=== PATIENT | male | born 1975 | race Caucasian/White ===

== ENCOUNTER 2020-04-08 00:24 | Emergency (ER) | payer BC, SELFPAY ==
[2020-04-08] VITALS (7 sets, daily range): BP systolic 116–161; BP diastolic 78–102; PULSE 70–88; RESP 16–20; TEMP 36; O2SAT 94–99
--- NOTE | ~2020-04-08 | XR_ITS ---
EXAMINATION: XR chest 1V portable 04/08/2020 00:59 INDICATION: Chest pain PROCEDURE: AP portable chest COMPARISON: Comparison to multiple prior studies sequentially, with oldest reviewed study dated 05/13. FINDINGS: The lungs are clear. The cardiomediastinal silhouette is within normal limits. There are no pleural effusions. There is no pneumothorax suspected. IMPRESSION: 1: NO ACUTE CARDIOPULMONARY DISEASE. Reviewed, dictated and finalized at location A.
--- NOTE | ~2020-04-08 | CT_ITS ---
EXAMINATION: CTA chest PE protocol DATE: 04/08/2020 08:57 CDT INDICATION: Chest pain TECHNIQUE: Computed tomographic angiography (CTA) of the chest was performed with 100 mL Omnipaque-35 0 intravenous contrast. The dose-length product was 885.91 mGy-cm. Maximum intensity projection 3D-re constructions of the aorta and other arteries were constructed by the technologist on a separate work station. COMPARISON: Chest dated 04/08/2020. FINDINGS: Study is technically adequate without evidence for pulmonary embolism. No significant pleur al or pericardial effusion. No thoracic lymphadenopathy. There is a large bleb in the right middle lo be. No endobronchial lesions. No focal pulmonary nodules or masses. IMPRESSION: 1. No evidence for pulmonary embolism. No acute cardiopulmonary disease. Reviewed, dictated and finalized at location A.
--- NOTE | 2020-04-08 00:43 | ECG_ITS ---
Measurements Intervals [place] Rate: 74 P: 46 FL: 169 QRS: 90 QRSD: 104 T: 40 QT: 379 QTc: 421 Interpretive Statements SINUS RHYTHM INCOMPLETE RIGHT BUNDLE BRANCH BLOCK BASELINE WANDER- V4-V6 BORDERLINE ECG Electronically Signed On 04-08-2020 7:48:00 CDT by Lauro Mckeon D.O.
--- NOTE | 2020-04-08 00:44 | ED.GENADULT ---
HPI - General Adult General Chief complaint: Unspecified Stated complaint: left arm pain; feels terrible Time Seen by Provider: 04/08/20 00:33 History of Present Illness HPI narrative: Patient presents emergency department from home for left arm pain. Patient states symptoms have been throughout the day today. Pain in the left shoulder down the left arm described as aching in nature states that the pain comes approximately every 10 minutes last for approximately 10 minutes and resolves. Nothing makes the pain better or worse. Denies any fevers or chills chest pain shortness of breath. Does note some episodes of diaphoresis and dizziness with the episodes. Patient does state he had a previous cardiac catheterization 2012 that was normal at that time Related Data Allergies Allergy/AdvReac Type Severity Reaction Status Date / Time Penicillins Allergy Mild Verified 11/02/14 08:51 Contrast Media Allergy Mild Uncoded 11/02/14 08:51 Review of Systems Review of Systems: Narrative: Gen.: Denies fevers or chills ENT: Denies congestion Respiratory: Denies shortness of breath or cough CV: Denies chest pain or palpitations GI: Denies abdominal pain nausea, emesis or diarrhea Musculoskeletal: Reports left arm pain Neuro: Denies numbness, tingling, weakness or focal weakness reports remittent dizziness Skin: Denies rash Except as documented, all other systems reviewed and negative [facility] Past Medical History Medical History (Updated 04/08/20 @ 04:49 by Russell Ledesma DO) Hypercholesterolemia Social History Social History (Updated 04/08/20 @ 00:45 by Russell Ledesma DO) Smoking status: Never smoker Gender identity (if verbalized by the patient): Male Exam Narrative: Exam Narrative: APPEARANCE: No acute distress, nontoxic, resting in bed EYES: EOMI HEENT: Normocephalic, atraumatic, OMM Neck: Supple, no midline tenderness palpation, full range of motion of the neck with pain with full rotation left, tender palpation of the left lateral neck in the region of the trapezius muscle with muscle spasm palpated point tenderness present RESPIRATORY: No respiratory distress Clear to auscultation bilaterally with no rhonchi wheezing or rales. CARDIOVASCULAR: Regular rate and rhythm without murmurs rubs or gallops. ABDOMINAL: Soft, nontender, nondistended, no rebound or guarding MUSCULOSKELETAl: Moves all extremities. No clubbing, cyanosis or edema. No tenderness to palpation of the left shoulder elbow or wrist with full range of motion without pain, radial pulse 2+, neurovascular intact NEURO: Awake and alert. Following commands, speech normal, no focal deficits SKIN:: Warm, dry. No rashes lesions or abrasions PSYCHIATRIC: Normal affect/mood, Course Course Emergency Course: Patient states pain resolved following Toradol Discussed with Dr Hall presentation work-up. Cardiac history. This time feels that with 2 negative troponins and negative CTA patient may be discharged to follow-up as an outpatient Discussed with patient results of workup and diagnosis. Discussed need for follow-up with primary care, proper use of medication, and reasons to return to the emergency department. Patient understands and agrees to current treatment plan Vital Signs Vital signs: Vital Signs Temperature 96.8 F L 04/08/20 00:29 Pulse Rate 84 04/08/20 00:29 Respiratory Rate 20 04/08/20 00:29 Blood Pressure 158/102 H 04/08/20 00:29 Pulse Oximetry 98 04/08/20 00:29 Temperature 96.8 F L 04/08/20 00:29 Pulse Rate 73 04/08/20 04:32 Respiratory Rate 16 04/08/20 04:32 Blood Pressure 122/78 04/08/20 04:32 Pulse Oximetry 99 04/08/20 04:32 Medical Decision Making MDM Narrative Medical decision making narrative: Patient's EKGs and labs are without significant high risk changes. Cardiac risk factors reviewed. Patient is felt likely low risk for ACS and reasonable for further risk stratification testing as an outpatient. P
[2020-04-08] MEDS: ASPIRIN 81 MG CHEWABLE TABLET 324 MG PO (00:52)
[2020-04-08 00:54] LABS: Basophils Absolute Auto 0.1 K/mm3 (0.0-0.1); Basophils Percent Auto 0.8 % (0.2-1.2); Eosinophils Absolute Auto 0.2 K/mm3 (0-0.3); Eosinophils Percent Auto 1.8 % (0-4.4); Hematocrit 47.9 % (42.0-52.0); Hemoglobin 16.5 g/dL (14.0-18.0); Immature Granulocyte Absolute 0.03 K/mm3 (0.00-0.031); Immature Granulocyte Percent A 0.3 % (0-0.5); Lymphocytes Absolute Auto 3.17 K/mm3 (0.9-3.2); Lymphocytes Percent Auto 31.9 % (18.3-44.2); Mean Corpuscular HGB Conc 34.4 g/dl (32-36); Mean Corpuscular Hemoglobin 29.9 pg (26-34); Mean Corpuscular Volume 86.9 fl (80-100); Monocytes Percent Auto 9.6 % (2.6-8.5); Neutrophils Absolute Auto 5.5 K/mm3 (1.3-6.7); Neutrophils Percent Auto 55.6 % (45.5-73.1); Platelet Count Result 229 k/mm3 (150-375); Red Blood Count 5.51 M/mm3 (4.6-6.20); Red Cell Distribution Width 12.2 % (11.5-14.5); White Blood Count 9.9 K/mm3 (4.5-10.0)
[2020-04-08 01:06] LABS: Alanine Aminotransferase 27 U/L (4-50); Albumin Level 4.4 g/dL (3.5-5.1); Alkaline Phosphatase 92 U/L (38-126); Anion Gap 10 mmol/L (8-16); Aspartate Amino Transferase 23 U/L (17-59); Bilirubin,Total 0.3 mg/dL (0.2-1.3); Blood Urea Nitrogen 15 mg/dL (9-20); Calcium 9.2 mg/dL (8.4-10.2); Carbon Dioxide 29 mmol/L (22-30); Chloride 103 mmol/L (98-107); Estimated CRCL calculation 118 ml/min; Estimated Glomerular Filt Rate > 60; Glucose 184 mg/dL (75-110); Potassium 4.1 mmol/L (3.4-5.0); Sodium 142 mmol/L (137-145)
[2020-04-08 01:10] LABS: Partial Thromboplastin Time 28.4 SECONDS (22.3-36.8); Prothrombin Time 12.4 Seconds (11.1-14.7)
[2020-04-08 01:17] LABS: Troponin I < 0.012 ng/mL (0.000-0.034)
[2020-04-08] MEDS: MORPHINE SULFATE (*CRX) 2 MG/ML INJ IV PUSH (01:39)
--- NOTE | 2020-04-08 01:52 | PC.NURSE ---
PT states he had an allergy to the contrast he got during an MRI. Denies hx of issues with CT Contrast.
[2020-04-08 04:02] LABS: Troponin I < 0.012 ng/mL (0.000-0.034)
[2020-04-08] MEDS: KETOROLAC 30 MG/ML VIAL (*BKC) IV PUSH (04:06)
--- NOTE | 2020-04-08 04:39 | ECG_ITS ---
Measurements Intervals [place] Rate: 72 P: 31 [place]: 177 QRS: 87 QRSD: 100 T: 38 QT: 386 QTc: 422 Interpretive Statements SINUS RHYTHM INCOMPLETE RIGHT BUNDLE BRANCH BLOCK BORDERLINE R WAVE PROGRESSION, ANTERIOR LEADS BORDERLINE ECG Electronically Signed On 04-08-2020 7:51:15 CDT by Lauro Mckeon D.O.
== END 2020-04-08 05:09 | disposition home or self-care (01) ==
PROVIDERS: Emergency Provider Emergency Medicine; PCP Physician Assistant
DX: M62.830 Muscle spasm of back (principal); E78.00 Pure hypercholesterolemia, unspecified; I45.10 Unspecified right bundle-branch block; R94.31 Abnormal electrocardiogram [ECG] [EKG]
CPT/HCPCS: 36415; 71045; 71275; 80053; 84484; 85025; 85380; 85610; 85730; 93005; 96374; 96375; 99284; A9270; J1885; J2270; Q9967

== ENCOUNTER 2020-05-13 15:11 | Emergency (ER) | payer BC, SELFPAY ==
[2020-05-13 15:24] VITALS: BP 125/85; PULSE 90; RESP 20; TEMP 37.6; O2SAT 98
--- NOTE | 2020-05-13 15:37 | ED.URI ---
HPI - URI/Sore Throat General Chief Complaint: Upper Respiratory Infection Stated Complaint: upper respiratory infection Source: patient Mode of arrival: ambulatory Limitations: no limitations History of Present Illness HPI Narrative: Marino Powell is a 44 yo male with a PMH of high cholesterol who comes to [facility] with a low-grade fever of 99 7, symptoms of sinusitis since Thursday. States that he cannot clear any mucus in his sinuses and that he feels poorly and is wanting a prescription for doxycycline. He claims that when he has been treated in the past that that is what the drug he has been given however he has not been seen in the [facility] since the record transition. Patient denies smoking or drinking, taking both Claritin and Zyrtec the same time, so has a nasal steroid spray that he is using Related Data Home Medications Medication Instructions Recorded Confirmed Vitamin D3 05/13/20 05/13/20 cetirizine [Zyrtec] 10 mg PO DAILY 05/13/20 05/13/20 loratadine [Claritin] 10 mg PO DAILY 05/13/20 05/13/20 simvastatin mg 05/13/20 Allergies Allergy/AdvReac Type Severity Reaction Status Date / Time Penicillins Allergy Mild Unknown Verified 05/13/20 15:28 Contrast Media Allergy Mild Unknown Uncoded 05/13/20 15:28 Review of Systems Review of Systems: Narrative: CONSTITUTIONAL low-grade fever, chills, sweats. EYES: Denies visual changes, redness, discharge. ENT: Denies rhinorrhea, congestion, sore throat, otalgia. Sinus pressure since Thursday CARDIOVASCULAR: Denies chest pain, palpitations, edema. RESPIRATORY: Denies dyspnea, wheezing, cough GASTROINTESTINAL: Denies abdominal pain, nausea, vomiting, diarrhea. GENITOURINARY: Denies dysuria, hematuria, abnormal discharge SKIN: Denies rash or itching. NEUROLOGIC: Denies numbness, or focal weakness. PSYCHIATRIC: Denies anxiety or depression. [facility] Past Medical History Medical History High cholesterol Hypercholesterolemia Family History Family History Other High cholesterol Hypertension Social History Social History (Updated 05/13/20 @ 15:40 by Brigida Rodriguez CNP) Smoking status: Never smoker Alcohol intake: current Alcohol use details: Rarely drinks Gender identity (if verbalized by the patient): Male Comments At time of signature, I agree with nursing past medical, surgical, social and family history. There is no relevant family history pertinent to the presenting complaint. Exam Narrative: Exam Narrative: GENERAL: This is a well-nourished, well-developed patient, in mild distress. 99.7 temperature HEAD: normocephalic, atraumatic. EYES: Sclera clear/white. Vision is grossly intact. EARS: External ears normal, auditory canals clear and without drainage, TMs normal without perforation. Hearing grossly intact. NOSE: External nose normal without nasal discharge, nares with redness, no rhinorrhea. Complaining of sinus pressure THROAT: Mucous membranes moist, posterior pharynx no exudate or erythema NECK: Neck supple, non-tender CARDIOVASCULAR: Regular rate and rhythm without murmurs, gallops, or rubs. RESPIRATORY: Clear to auscultation. Breath sounds equal bilaterally. No wheezes, rales, or rhonchi. GASTROINTESTINAL: Abdomen soft, SKIN: warm, intact with no suspicious lesions or rash, good texture and turgor. NEURO: awake, alert, and oriented to person, place and time. There were no obvious focal neurologic abnormalities. Steady gait EXTREMITIES: Normal range of motion. BACK: Nontender without deformity Course Course Emergency Course: Patient comes to express care with complaints of sinus pressure Insists on getting an antibiotic states that he will be miserable trying to treat symptomatically , wants doxycycline -given 5 days of doxycycline Follow-up with PCP Vital Signs Vital signs: Vital Signs Temperature
== END 2020-05-13 16:13 | disposition home or self-care (01) ==
PROVIDERS: Emergency Provider Nurse Practitioner; PCP Physician Assistant
DX: J01.00 Acute maxillary sinusitis, unspecified (principal); E78.00 Pure hypercholesterolemia, unspecified
CPT/HCPCS: 99213; G0463

== ENCOUNTER 2022-06-02 09:52 | Emergency (ER) | payer BC, SELFPAY ==
[2022-06-02 10:13] VITALS: BP 141/92; PULSE 80; RESP 18; TEMP 36.9; O2SAT 98
--- NOTE | 2022-06-02 12:06 | ED.SKABFB ---
HPI - Skin/Abscess/Foreign Bdy General Chief complaint: Skin/Abscess/Foreign Body Stated complaint: perianal abcess Time Seen by Provider: 06/02/22 11:45 History of Present Illness HPI narrative: Patient is a 46-year-old male with a history of recurrent perianal abscess here for evaluation of right-sided rectal pain for the past week. Patient states the pain is getting worse over the past week, he notes worsening pain with bowel movements and with sitting. Also notes blood on the toilet tissue when he wipes. Patient tells me that he has seen a general surgeon in the past for drainage but has been able to get into in the office. Denies fevers, chills, nausea, vomiting, changes to bowels. Related Data Home Medications Medication Instructions Recorded Confirmed Vitamin D3 05/13/20 05/13/20 cetirizine 10 mg tablet (Zyrtec) 10 mg PO DAILY 05/13/20 05/13/20 loratadine 10 mg tablet (Claritin) 10 mg PO DAILY 05/13/20 05/13/20 simvastatin 10 mg tablet mg 05/13/20 Allergies Allergy/AdvReac Type Severity Reaction Status Date / Time Penicillins Allergy Mild Unknown Verified 06/02/22 11:31 Contrast Media Allergy Mild Unknown Uncoded 06/02/22 11:31 Review of Systems Review of Systems: Gen: Denies fevers or chills Eyes: Denies eye pain or visual change ENT: Denies congestion Respiratory: Denies shortness of breath or cough CV: Denies chest pain or palpitations GI: Reports pain to rectal area. Denies abdominal pain nausea, emesis or diarrhea : denies burning, urgency, frequency or hematuria Musculoskeletal: Denies back pain or muscle pain Neuro: Denies numbness, tingling, weakness or focal weakness Skin: Denies rash Except as documented, all other systems reviewed and negative [facility] Past Medical History Medical History High cholesterol Hypercholesterolemia Family History Family History Other High cholesterol Hypertension Social History Social History (Updated 05/13/20 @ 15:40 by Brigida Rodriguez, [place]) Smoking status: Never smoker Alcohol intake: current Alcohol use details: Rarely drinks Gender identity (if verbalized by the patient): Male Exam Narrative: APPEARANCE: Well appearing, no pain in distress, well-nourished. Head: Normocephalic and atraumatic. EYES: PERRLA/EOMI, conjunctivae clear NOSE: No nasal drainage EARS: External ear normal in appearance THROAT: Oropharynx is clear. Mucous membranes are moist. NECK: Supple. No adenopathy, no masses. RESPIRATORY: Airway patent, respirations nonlabored. Clear to auscultation bilaterally, no rales, rhonchi, wheezing. CARDIOVASCULAR: Regular rate and rhythm without murmurs, rubs, or gallops. : Patient has a 3 cm x 3 cm area of redness and induration to the right perianal area that is tender to palpation, no obvious fluctuance or drainage noted. ABDOMINAL: Normoactive bowel sounds. Soft, nontender, nondistended. No rebound tenderness or guarding. MUSCULOSKELETAL: Extremities are warm and well-perfused. Moves all extremities well. No edema. NEURO: Normal speech. No focal neurologic deficits. SKIN: Skin is warm and dry. No rashes. PSYCHIATRIC: Normal affect/mood. Course Vital Signs Vital signs: Vital Signs Temperature 98.4 F 06/02/22 10:13 Pulse Rate 80 06/02/22 10:13 Respiratory Rate 18 06/02/22 10:13 Blood Pressure 141/92 H 06/02/22 10:13 Pulse Oximetry 98 06/02/22 10:13 Oxygen Delivery Room Air 06/02/22 10:13 Temperature 98.4 F 06/02/22 10:13 Pulse Rate 80 06/02/22 10:13 Respiratory Rate 18 06/02/22 10:13 Blood Pressure 141/92 H 06/02/22 10:13 Pulse Oximetry 98 06/02/22 10:13 Oxygen Delivery Room Air 06/02/22 10:13 MDM - Skin/Abscess/Foreign Bdy MDM Narrative Medical decision making narrative: 46-year-old male here for evaluation of perianal discomfort for the past several da
--- NOTE | 2022-06-02 12:22 | PC.NURSE ---
when going into pt's room to give pain medication pt expressed concern of the plan of action. This RN explained to pt what we were doing and the reason why. pt states last time he just saw a general surgeon and they were able to gill it and he could go home. pt states he has never had to get blood work or a CT scan and is refusing to get them done. explained to pt the importance of the tests. pt still refusing and states he would just rather go to [place]. Danita ESTRADA made aware of situation and states to have the pt sign out AMA. explained to pt the risks of leaving AMA and the benefits of staying. pt still refusing. pt made aware he can always return if he changes his mind. pt signed AMA paperwork and ambulated out of the ED to the waiting area.
== END 2022-06-02 12:32 | disposition left against medical advice (07) ==
LOC: ANHED 11:50
PROVIDERS: Emergency Provider Emergency Medicine; PCP Physician Assistant
DX: K61.0 Anal abscess (principal); E78.00 Pure hypercholesterolemia, unspecified
CPT/HCPCS: 99281

== ENCOUNTER → 2023-03-27 15:21 | Outpatient (CLI) | payer BC, SELFPAY ==
--- NOTE | ~2023-03-27 | XR_ITS ---
EXAMINATION: XR wrist RT 2V INDICATION: Right wrist pain TECHNIQUE: Two views of the right hand are obtained. COMPARISON: 11/08/2012 FINDINGS: Bone alignment is normal. There is no fracture. There is mild osteoarthritis at the first m etacarpophalangeal joint. The soft tissues are unremarkable. IMPRESSION: 1. No acute osseous abnormality. Reviewed, dictated and finalized at location F.
--- NOTE | ~2023-03-27 | XR_ITS ---
EXAMINATION: XR hand RT 2V INDICATION: Right hand pain TECHNIQUE: Two views of the right hand are obtained. COMPARISON: 11/08/2012 FINDINGS: There is mild osteoarthritis at the first metacarpophalangeal joint. Bone alignment is norm al. There is no fracture. There is mild ventral soft tissue swelling of the wrist. IMPRESSION: 1. No acute osseous abnormality. Reviewed, dictated and finalized at location F.
== END ==
PROVIDERS: PCP Internal Medicine; Visit Provider Nurse Practitioner Family
DX: M79.641 Pain in right hand (principal)
CPT/HCPCS: 73100; 73120

== ENCOUNTER 2024-02-08 21:24 | Emergency (ER) | payer BC, SELFPAY ==
--- NOTE | ~2024-02-08 | XR_ITS ---
EXAMINATION: XR chest 2V DATE: 02/08/2024 21:36 INDICATION: Chest pain TECHNIQUE: PA and lateral views of the chest were obtained. COMPARISON: Chest radiograph dated 04/08/2020 FINDINGS: Small lung volumes. Unchanged mild linear discoid atelectasis/scarring in the lingula and lateral lef t lung base. No new airspace opacities, pulmonary edema, pleural effusion or pneumothorax. The cardio mediastinal silhouette is normal. Cholecystectomy clips in the right upper quadrant. IMPRESSION: 1. Small lung volumes with chronic mild lingular discoid atelectasis/scarring. Reviewed, dictated and finalized at location A.
--- NOTE | 2024-02-08 21:25 | ECG_ITS ---
Test Date: 2024-02-08 21:29:34 Measurements Intervals [place] Rate: 89 P: 35 AL: 175 QRS: 196 QRSD: 102 T: 50 QT: 349 QTc: 427 Interpretive Statements SINUS RHYTHM RIGHT AXIS DEVIATION POSSIBLE LEFT ATRIAL ENLARGEMENT PATTERN CONSISTENT WITH PULMONARY DISEASE INCOMPLETE RIGHT BUNDLE BRANCH BLOCK BASELINE ARTIFACT- I, III, AVR, AVL, AVF BORDERLINE ECG No previous ECG available for comparison Electronically Signed On 02-09-2024 06:20:33 CDT by Lauro Mckeon D.O.
[2024-02-08 21:26] VITALS: BP 140/82; PULSE 88; RESP 15; TEMP 36.6; O2SAT 98
[2024-02-08] MEDS: ASPIRIN 81 MG CHEWABLE TABLET 324 MG PO (22:39)
[2024-02-08 22:43] LABS: Basophils Absolute Auto 0.1 K/mm3 (0.0-0.1); Basophils Percent Auto 0.8 % (0.2-1.2); Eosinophils Absolute Auto 0.1 K/mm3 (0-0.3); Eosinophils Percent Auto 1.1 % (0-4.4); Hematocrit 51.9 % (42.0-52.0); Hemoglobin 18.2 g/dL (14.0-18.0); Immature Granulocyte Absolute 0.03 K/mm3 (0.00-0.031); Immature Granulocyte Percent A 0.3 % (0-0.5); Lymphocytes Absolute Auto 2.24 K/mm3 (0.9-3.2); Lymphocytes Percent Auto 22.8 % (18.3-44.2); Mean Corpuscular HGB Conc 35.1 g/dl (32-36); Mean Corpuscular Hemoglobin 30.3 pg (26-34); Mean Corpuscular Volume 86.4 fl (80-100); Mean Platelet Volume 9.9 fl (7.4-10.4); Monocytes Absolute Auto 0.8 K/mm3 (0.1-0.6); Neutrophils Absolute Auto 6.6 K/mm3 (1.3-6.7); Platelet Count Result 171 k/mm3 (150-375); Red Blood Count 6.01 M/mm3 (4.6-6.20); Red Cell Distribution Width 12.5 % (11.5-14.5); White Blood Count 9.8 K/mm3 (4.5-10.0)
[2024-02-08 22:58] LABS: Prothrombin Time 14.2 Seconds (11.1-14.7)
[2024-02-08 22:59] LABS: Partial Thromboplastin Time 28.5 Seconds (22.3-36.8)
[2024-02-08 23:00] VITALS: BP 121/74; PULSE 87; RESP 22; O2SAT 100
[2024-02-08 23:11] LABS: Alanine Aminotransferase 22 U/L (6-50); Albumin Level 4.1 g/dL (3.5-5.1); Alkaline Phosphatase 68 U/L (38-126); Anion Gap 10 mmol/L (4-12); Aspartate Amino Transferase 21 U/L (17-59); Bilirubin,Total 0.7 mg/dL (0.2-1.3); Blood Urea Nitrogen 13 mg/dL (9-20); Calcium 8.7 mg/dL (8.4-10.2); Carbon Dioxide 24 mmol/L (22-30); Chloride 101 mmol/L (98-107); Estimated CRCL calculation 98 ml/min; Estimated Glomerular Filt Rate > 60; Glucose 141 mg/dL (65-110); Lipase 218 U/L (23-300); Potassium 3.9 mmol/L (3.4-5.0); Sodium 135 mmol/L (137-145)
[2024-02-08 23:23] LABS: Troponin I < 0.012 ng/mL (0.000-0.034)
[2024-02-09 00:13] VITALS: BP 120/89; PULSE 98; RESP 24; O2SAT 100
--- NOTE | 2024-02-09 00:18 | ED.GENADULT ---
HPI - General Adult General Chief complaint: Chest Pain Stated complaint: lightheaded, L arm pain Time Seen by Provider: 02/08/24 23:29 Source: patient Limitations: no limitations History of Present Illness HPI narrative: Patient is a 48-year-old male presents to the emergency department for lightheadedness and a lack of sensation in his left arm that occurred at approximately 8:15 p.m. while the patient was laying in a recliner and not doing anything out of the ordinary. Patient notes the feeling of lack of sensation seemed to start and has left hand and radiated up towards his left armpit region where it stopped and it lasted a couple minutes and then resolved and has not returned. Patient states that he feels well at this time. Patient denies any further lightheadedness. Patient states he has been in his normal state health as of late, denies any recent injuries, recent illness, cough, chest pain, difficulty breathing, fever, weakness. Patient admits to history of some cervical issues in which she sees a chiropractor for it. Related Data Home Medications Medication Instructions Recorded Confirmed cetirizine 10 mg tablet (Zyrtec) 10 mg PO DAILY 05/13/20 11/10/23 loratadine 10 mg tablet (Claritin) 10 mg PO DAILY 05/13/20 11/10/23 cholecalciferol (vitamin D3) 125 250 mcg PO DAILY 01/19/23 11/10/23 mcg (5,000 unit) capsule testosterone cypionate 100 mg/mL 150 mg IM WEEKLY 05/12/23 11/10/23 intramuscular oil magnesium 250 mg tablet 250 mg PO DAILY 11/10/23 11/10/23 prasterone (dhea) 25 mg capsule 15 mg PO DAILY 11/10/23 11/10/23 (DHEA) tadalafil 5 mg tablet 5 mg PO DAILY 11/10/23 11/10/23 vitamin B42-robrkbd B1 1,000 ml IM 11/10/23 11/10/23 mcg-100 mg/mL injection solution Allergies Allergy/AdvReac Type Severity Reaction Status Date / Time Penicillins Allergy Severe Rash Verified 02/08/24 21:31 Review of Systems Review of Systems: A 10 system review of systems was completed on the patient and is negative except for what is stated in the HPI. Nursing and ancillary documentation was reviewed. [facility] Past Medical History Medical History (Updated 02/09/24 @ 00:56 by Adonay Earl DO) Abscess, perianal Aftercare following right hip joint replacement surgery Allergies Anxiety Colon polyps DM w/o complication type II High cholesterol History of arthroplasty of right elbow Hypercholesterolemia Irritable bowel syndrome Irritable bowel syndrome with mixed bowel habits Male hypogonadism Shoulder pain, bilateral Surgical History Surgical History (Updated 11/10/23 @ 10:08 by Olga Ramirez CMA) H/O repair of rotator cuff History of anal fistulotomy History of arthroplasty of right shoulder History of cholecystectomy Hx of tonsillectomy Family History Family History Sibling Cancer Father Depression Anxiety Heart problem Other High cholesterol Hypertension Social History Social History (Updated 11/10/23 @ 10:19 by Olga Ramirez [facility]) Smoking status: Never smoker Alcohol intake: current Alcohol use details: Rarely drinks Substance use: never Substance use type: does not use Do You Feel Safe in your Home?: Yes Lack of Transportation: No Lack of Food: Never True Current Housing: I Have Housing Concerned About Future Housing: No Difficulty Paying Gas/Electric Bills: No Difficulty Paying for Meds: No Currently Unemployed: No Education: Bachelor's Degree Difficulty w/ Childcare or Family Care: No Living arrangements: with family Occupation/Education: occupation Gender identity (if verbalized by the patient): Male Agree to blood products: Yes Comments At time of signature, I have reviewed and agree with nursing past medical, surgical, social and family history unless otherwise noted. Please see the nursing chart for further information. There is no relevant family history pertinent to
[2024-02-09 00:45] LABS: D Dimer 0.34 ug/mL (<0.48)
--- NOTE | 2024-02-09 01:30 | ECG_ITS ---
Test Date: 2024-02-09 01:13:41 Measurements Intervals [place] Rate: 87 P: 43 TN: 170 QRS: 156 QRSD: 106 T: 47 QT: 357 QTc: 430 Interpretive Statements SINUS RHYTHM RIGHT AXIS DEVIATION POSSIBLE LEFT ATRIAL ENLARGEMENT INCOMPLETE RIGHT BUNDLE BRANCH BLOCK BASELINE ARTIFACT- I, III, AVR, AVL, AVF, V2 BORDERLINE ECG Compared to ECG 02/08/2024 21:29:34 NO SIGNIFICANT CHANGE Electronically Signed On 02-09-2024 06:21:38 CDT by Lauro Mckeon D.O.
[2024-02-09 01:40] LABS: Troponin I < 0.012 ng/mL (0.000-0.034)
== END 2024-02-09 02:08 | disposition home or self-care (01) ==
PROVIDERS: Emergency Provider Student in an Organized Health Care Education/Training Program; PCP Internal Medicine
DX: R42 Dizziness and giddiness (principal); G56.92 Unspecified mononeuropathy of left upper limb; E11.41 Type 2 diabetes mellitus with diabetic mononeuropathy; E78.00 Pure hypercholesterolemia, unspecified; K58.2 Mixed irritable bowel syndrome; Z96.641 Presence of right artificial hip joint; Z96.621 Presence of right artificial elbow joint; Z96.611 Presence of right artificial shoulder joint; Z86.010 Personal history of colon polyps; Z90.49 Acquired absence of other specified parts of digestive tract; Z79.85 Long-term (current) use of injectable non-insulin antidiabetic drugs; Z79.899 Other long term (current) drug therapy; Z79.890 Hormone replacement therapy; R94.31 Abnormal electrocardiogram [ECG] [EKG]; I45.10 Unspecified right bundle-branch block
CPT/HCPCS: 36415; 71046; 80053; 83690; 84484; 85025; 85380; 85610; 85730; 93005; 99284; A9270

== ENCOUNTER 2024-09-29 10:56 | Outpatient (CLI) | payer BC, SELFPAY ==
--- NOTE | ~2024-09-29 | XR_ITS ---
Left Shoulder Technique: AP and scapular Y views were obtained. Clinical History: Pain Findings: No fracture or dislocation is seen. Osseous alignment is anatomic. The glenohumeral and acr omioclavicular joint spaces are preserved. Soft tissues are unremarkable. Impression: Unremarkable left shoulder radiographs. Reviewed, dictated and finalized at [facility]. Impression: Unremarkable left shoulder radiographs.
--- NOTE | ~2024-09-29 | XR_ITS ---
Cervical Spine: AP, lateral, oblique, open-mouth views Clinical History: Pain Findings: There is straightening of the normal cervical lordosis. No fracture or sublocation. There i s moderate degenerative disc narrowing at C5-C6 and C6-C7. No instability evident on flexion or exten arti. Pre-vertebral soft tissues are unremarkable. Impression: Mild degenerative change, as above. Reviewed, dictated and finalized at location . Impression: Mild degenerative change, as above.
== END 2024-09-29 10:57 | disposition home or self-care (01) ==
PROVIDERS: PCP Nurse Practitioner; Visit Provider Nurse Practitioner
DX: M25.512 Pain in left shoulder (principal); S49.90XA Unspecified injury of shoulder and upper arm, unspecified arm, initial encounter; X58.XXXA Exposure to other specified factors, initial encounter; M50.30 Other cervical disc degeneration, unspecified cervical region
CPT/HCPCS: 72052; 73030

== ENCOUNTER 2024-10-10 12:48 | Outpatient (CLI) | payer BC, SELFPAY ==
--- NOTE | ~2024-10-10 | MR_ITS ---
EXAMINATION: MR shoulder LT wo con DATE: 10/10/2024 13:24 INDICATION: Left shoulder pain TECHNIQUE: Magnetic resonance imaging (MRI) of the left shoulder was performed without intravenous co ntrast. Sequences included axial PD-weighted FS FSE, coronal oblique PD-weighted FS FSE, coronal obli que T2-weighted FS FSE, sagittal PD-weighted FS FSE, and sagittal T1-weighted SE. COMPARISON: Left shoulder radiographs dated 09/29/2024 FINDINGS: Coracoacromial arch: The acromion undersurface is curved in morphology (type II). The coracoacromial ligament is normal. M ild acromioclavicular osteoarthritis. Rotator cuff: Mild supraspinatus tendinopathy with full-thickness tear extending 7 mm AP along the superior facet f ootplate and measuring 4 mm medial to lateral. The infraspinatus and teres minor tendons are normal. Mild subscapularis tendinopathy without discrete tear. Normal rotator cuff muscle bulk and signal. Biceps tendon, glenoid labrum and glenohumeral cartilage: Long head of the biceps tendon is normal. Glenoid labrum is normal. Glenohumeral cartilage is normal. Fluid: Physiologic amount of fluid in the glenohumeral joint and biceps tendon sheath. No loose osteochondr al bodies. Small amount of fluid in the subacromial/subdeltoid bursa consistent with mild bursitis. Bones: Prominent cystic changes along the superior facet of the greater tuberosity and the lateral rim of th e intertubercular groove likely related to chronic rotator cuff disease. Marrow signal is otherwise u nremarkable. No fracture or pathologic marrow replacing process. IMPRESSION: 1. Mild supraspinatus and subscapularis tendinopathy with small full-thickness tear along the superio r facet footplate of the former. 2. Mild subacromial/subdeltoid bursitis. Reviewed, dictated and finalized at location B. IMPRESSION: 1. Mild supraspinatus and subscapularis tendinopathy with small full-thickness tear along the superior facet footplate of the former. 2. Mild subacromial/subdeltoid bursitis.
== END 2024-10-10 12:49 | disposition home or self-care (01) ==
LOC: GOSHIMG 12:48
PROVIDERS: PCP Nurse Practitioner; Visit Provider Nurse Practitioner
DX: M75.52 Bursitis of left shoulder (principal); M75.122 Complete rotator cuff tear or rupture of left shoulder, not specified as traumatic
CPT/HCPCS: 73221

== ENCOUNTER 2024-11-07 08:46 | Outpatient (CLI) | payer BC, SELFPAY ==
--- OUTSIDE RECORDS SUMMARY | 2024-11-07 09:07 | XMS_ITS | Clinical Summary ---
Author Organization [facility] al Address [address] [place] [address] Care Team Providers Care Study Manager Name Role Phone Kenji Smith MD Unavailable [phone] Guera Yoon MD Unavailable [phone] Luis Enrique Marin DO Primary Care Provider [phone] Allergies Active Allergy Reactions Criticality Noted Date Comments Cephalexin Unknown Low Penicillins Anaphylaxis,Rash High 01/26/2012 Medications triamcinolone (NASACORT) 55 mcg nasal inhaler Administer 2 sprays into each nostril daily as needed for rhinitis or allergies Active cholecalcifer ol (VITAMIN D-3) 5,000 unit capsuleIndica tions:Vitamin D Deficiency Take 1 capsule (5,000 Units total) by mouth daily before breakfast Active cetirizine (ZyrTEC) 10 mg capsuleIndica tions:Allergi c Rhinitis Take 10 mg by mouth daily before breakfast 07/13/19 20 Active albuterol HFA (PROVENTIL HFA,VENTOLIN HFA,PROAIR HFA) 90 mcg/actuation inhalerIndica tions:Seasona l allergies INHALE 2 PUFFS EVERY 4 HOURS NEEDED FOR WHEEZING OR SHORTNESS OF BREATH 8.5 each 1 07/15/19 22 Active Additional Information Patient taking differently: 2 puff inhalation Every 6 hours PRN, wheezing, shortness of breath, Reported on 10/20/2024 loratadine (CLARITIN) 10 mg tabletIndicat ions:Allergic Rhinitis Take 1 tablet (10 mg total) by mouth nightly Active buPROPion XL (WELLBUTRIN XL) 150 mg 24 hr tabletIndicat ions:Anxiety with Depression Take 1 tablet (150 mg total) by mouth every morning 90 tablet 3 08/01/19 23 Active simvastatin (ZOCOR) 10 mg tablet Take 1 tablet (10 mg total) by mouth nightly 90 tablet 1 10/10/19 23 Active testosterone 30 mg/actuation (1.5 mL) solution in metered pump w/cali Inject into the muscle as instructed once a week Active cyanocobalami n, vitamin B-12, 1,000 mcg/mL kit Inject 1,000 mcg as directed every 30 (thirty) days Active prasterone, dhea, 25 mg tablet Take 25 mg by mouth daily Active magnesium gluconate 200 mg tabletIndicat ions:hypomagn esemia 1.875 tablets (375 mg total) daily Active sodium, potassium & mag sulfates (SUPREP BOWEL KIT) 17.5-3.13-1.6 gram recon solnIndicatio ns:Bowel Evacuation Drink first half of prep at 6:00pm the night before procedure. Drink second half of prep 4 hours prior to leaving home for procedure. 354 mL 06/24/20 23 Active Ozempic 2 mg/dose (8 mg/3 mL) pen injector injection INJECT 2MG SUBCUTANEOUSLY WEEKLY 04/05/20 24 Active doxycycline 100 mg tablet Take 1 tablet/capsule (100 mg total) by mouth 2 (two) times a day 07/31/19 25 Active predniSONE (DELTASONE) 20 mg tablet TAKE 3 TABLETS ORAL ROUTE ONCE DAILY FOR 5 DAYS 07/31/19 25 Active semaglutide (OZEMPIC SUBQ) Inject under the skin once a week 70 cc 2024 Discontinued oxyCODONE (ROXICODONE) 5 mg immediate release tabletIndicat ions:Pain Take 1 tablet (5 mg total) by mouth every 4 (four) hours as needed for pain for up to 10 doses 10 tablet 07/21/19 24 2024 Discontinued Active Problems Problem Noted Date Diagnosed Date Traumatic complete tear of left rotator cuff 04/2025 Biceps tendinitis of left upper extremity 2024 Acute pain of left shoulder 10/20/2024 Encounter for screening colonoscopy 06/23/2023 Perianal abscess 06/29/2022 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 Started on prednisone 20 mg twice daily x 5 days. Advised can continue to take Flexeril and Tylenol No. 3 with codeine as directed as needed for pain control. Recommended ice to affected area for 15-20 minutes per application every hour on the hour when able. Encouraged to rest and avoid activities that cause pain. Advised follow-up with PCP on Thursday as scheduled. Anxiety disorder due to general medical conditio n 08/27/2020 Assessment & Plan (02/10/2022 3:03 PM CDT): This is currently well controlled will continue to follow continue current medication Assessment & Plan (10/08/2020 11:19 AM CDT): Images from the original note were not included. Not controlled, adding Low dose zoloft, he used in past The pharmacologic and nonpharmacologic treatment of anxiety/depression were discusses with the patient. Included was a discussion of the current treatment regimens and their proposed mechanism of action concerning brain chemistry. Discussed the role of counseling as an adjunct to medications should we agree to pursue this. The patient is non-suicidal, and agrees to inform us of any change in this status follow up in 4-6 weeks- sooner if any problems Assessment & Plan (08/27/2020 12:05 PM [employer]): Patient is to continue present medications, work on diet and exercise as discussed, we did discuss the medications and potential side effects and signs and symptoms that would warrant calling office. Follow up routine. Mixed hyperlipidemia 08/27/2020 Assessment & Plan (02/10/2022 3:03 PM CDT): Patient is to continue present medications, work on diet and exercise as discussed, we did discuss the medications and potential side effects and signs and symptoms that would warrant calling office. Follow up routine. Assessment & Plan (10/08/2020 11:19 AM CDT): Patient is to continue present medications, work on diet and exercise as discussed, we did discuss the medications and potential side effects and signs and symptoms that would warrant calling office. Follow up routine. Assessment & Plan (08/27/2020 12:05 PM [employer]): Patient is to continue present medications, work on diet and exercise as discussed, we did discuss the medications and potential side effects and signs and symptoms that would warrant calling office. Follow up routine. Diverticulitis 03/23/2020 Assessment & Plan (03/23/2020 12:07 PM CDT): - treating empirically for diverticulitis based on exam - check CBC, CMP - cipro and flagyl - go to ER over weekend if sx worsen or develop fever - f/u next week if sx continue and will consider abdominal CT. Vitamin D deficiency 07/25/2019 Assessment & Plan (10/08/2020 11:20 AM CDT): taking Vitamin B12 deficiency 07/25/2019 Migraines 07/25/2019 Assessment & Plan (02/10/2022 3:03 PM CDT): This is currently well controlled will continue to follow Assessment & Plan (07/25/2019 11:37 AM [employer]): Did not have time to fully discuss today given multiple other issues Advised patient make appointment to follow up with PCP Tendinitis of left rotator cuff 04/04/2019 Chronic left shoulder pain 02/28/2019 Injury of left shoulder 02/28/2019 Glenoid labrum tear 10/27/2016 Rotator cuff syndrome 09/30/2016 Subacromial bursitis 09/30/2016 Seasonal allergies 03/27/2016 Overview (08/25/2019): zyrtec and flonase Assessment & Plan (06/21/2021 3:16 PM [employer]): Chronic, stable, controlled with oral medications and inhaler-refill for albuterol sent to patient's pharmacy per request. Obstructive sleep apnea syndrome 02/14/2015 Overview (10/16/2016): Obstructive sleep apnea Assessment & Plan (10/08/2020 11:20 AM CDT): Requires no c-pap Fatigue 02/14/2015 Overview (10/16/2016): Fatigue Anterior chest wall pain 01/30/2015 Overview (10/16/2016): Anterior chest wall pain Atopic rhinitis 01/30/2015 Overview (10/16/2016): Allergic rhinitis Snoring 01/30/2015 Overview (10/16/2016): Snoring Adiposity 01/30/2015 Overview (10/16/2016): Obesity (BMI 30.0-34.9) Mixed anxiety depressive disorder 01/30/2015 Overview (10/16/2016): Anxiety and depression Assessment & Plan (08/27/2020 12:06 PM [employer]): Images from the original note were not included. The pharmacologic and nonpharmacologic treatment of anxiety/depression were discusses with the patient. Included was a discussion of the current treatment regimens and their proposed mechanism of action concerning brain chemistry. Discussed the role of counseling as an adjunct to medications should we agree to pursue this. The patient is non-suicidal, and agrees to inform us of any change in this status follow up in 4-6 weeks- sooner if any problems Gastroesophageal reflux disease 01/30/2015 Overview (10/16/2016): GERD (gastroesophageal reflux disease) Assessment & Plan (02/10/2022 3:03 PM CDT): Images from the original note were not included. Avoid spicy, fried, greasy foods Keep hydrated with clear liquids Elevate HOB 2- 3 inches Avoid or cut down on caffeines, chocolates, and ETOH No late meals, or heavy meals after 7 pm Reg daily exercise No tight fitting clothing Stop smoking - if smoker Watch for worsening symptoms - ie diarrhea, vomiting, nausea, blood per rectum, vomiting up blood ,fever, arthralgias, rash etc. RTC prn or if new symptoms arise Pt or parent verbalizes understanding Assessment & Plan (10/08/2020 11:19 AM CDT): Images from the original note were not included. Avoid spicy, fried, greasy foods Keep hydrated with clear liquids Elevate HOB 2- 3 inches Avoid or cut down on caffeines, chocolates, and ETOH No late meals, or heavy meals after 7 pm Reg daily exercise No tight fitting clothing Stop smoking - if smoker Watch for worsening symptoms - ie diarrhea, vomiting, nausea, blood per rectum, vomiting up blood ,fever, arthralgias, rash etc. RTC prn or if new symptoms arise Pt or parent verbalizes understanding Assessment & Plan (08/27/2020 12:05 PM [employer]): Images from the original note were not included. Avoid spicy, fried, greasy foods Keep hydrated with clear liquids Elevate HOB 2- 3 inches Avoid or cut down on caffeines, chocolates, and ETOH No late meals, or heavy meals after 7 pm Reg daily exercise No tight fitting clothing Stop smoking - if smoker Watch for worsening symptoms - ie diarrhea, vomiting, nausea, blood per rectum, vomiting up blood ,fever, arthralgias, rash etc. RTC prn or if new symptoms arise Pt or parent verbalizes understanding Intermittent palpitations 01/30/2015 Overview (10/16/2016): Intermittent palpitations Tachycardia, unspecified 01/29/2015 Assessment & Plan (10/08/2020 11:20 AM CDT): Controlled will follow BMI 34.0-34.9,adult 12/28/2014 Assessment & Plan (10/08/2020 11:19 AM CDT): Healthy diet, exercise and weight loss Assessment & Plan (07/25/2019 11:33 AM [employer]): BMI Follow-up includes: nutrition counseling and exercise counseling. Chest wall pain 12/28/2014 Assessment & Plan (06/24/2021 4:37 PM [employer]): Improving,with medications, option for PT, suspect over use and myositis but can not rule out occult fracture. Assessment & Plan (06/10/2021 2:56 PM [employer]): cjonsistant with strain, alternate heat and ice, medications as ordered Arthralgia of hip 02/08/2010 Resolved Problems Problem Noted Date Diagnosed Date Resolved Date Mild episode of recurrent ma huber depressive disorder 08/27/2020 08/27/2020 Assessment & Plan (02/10/2022 3:03 PM CDT): This is well controlled with no HI SI continue current meds follow-up routine Encounters Date Type Department Care Team Description 10/20/2024 1:45 PM CDT Office Visit [facility] Surgery [address] [place] [address] Alvin James Jr., MD [id number] [K60.30] (Primary Dx) 10/20/2024 12:37 PM CDT - 10/20/2024 11:59 PM CDT Hospital Encounter [facility] [address] [place] [id number] Discharge Disposition: Discharge to home or self care 10/20/2024 11:20 AM CDT Office Visit [facility] Orthopaedic Surgery [address] [place] [address] Russell Gamino IV, MD Traumatic complete tear of left rotator cuff, initial encounter (Primary Dx); Acute pain of left shoulder; Biceps tendinitis of left upper extremity 10/20/2024 11:10 AM CDT - 10/20/2024 11:59 PM CDT Hospital Encounter [facility] [id number] [place] [id number] Left shoulder pain, unspecified chronicity Discharge Disposition: Discharge to home or self care from Last 3 Months Immunizations Immunization Administration Dates Next Due Influenza, Quadrivalent, Spl it, Preservative Free, Intramuscular 04/21/2018 Influenza, Trivalent, IM (MDV) 04/20/2012 Influenza, Unspecified 06/08/2021,2019,04/12/2019,04/21 Moderna SARS-CoV-2 Monovalen t Vaccination (12+ YRS) 06/08/2021,10/09/2020,09/11/2020 Tdap 08/13/2010 Surgical History Surgery Date Site/Laterality Comments CHOLECYSTECTOMY 07/13/2009 - 08/12/2009 NASAL SINUS SURGERY 07/13/2009 - 07/12/2010 HIP ARTHROSCOPY W/ LABRAL REPAIR 07/13/2009 - 07/12/2010 Right SHOULDER ARTHROSCOPY W/ LABRAL REPAIR 07/13/2017 - 07/12 COLONOSCOPY 07/13/2014 - 07/12/2015 RECTAL EXAMINATION UNDER ANESTHESIA 07/21/2023 seton Medical History Medical History Date Comments Anxiety disorder Anxiety Hx Other Medical rhinitis; Comme nts: MPB 01/30/2015 - Depression Pneumonia Sleep apnea Allergic rhinitis PONV (postoperative nausea and vomiting) Family History Medical History Relation Name Comments Cancer Brother 1 Dawson Carrillo Family history of malignant neoplasm - (Added by TW Conv) Coronary artery disease Father Michael nary artery disease; Hyperlipidemia Father Allergy (severe) Mother Oumou Carrillo Autoimmune disease Mother Oumou Carrillo Anesthesia problems Neg Hx Relation Name Status Comments Brother 1 Dawson Carrillo Alive Brother 2 Alive Father (Age 51) Mother Oumou Carrillo Alive Social History Tobacco Use Types Packs/Day Years Used Date Smoking Tobacco: Never Smokeless Tobacco: Never Tobacco Cessation:Counseling Given: Not Answered Alcohol Use Standard Drinks/Week Comments Yes 0 (1 standard drink = 0.6 oz pur e alcohol) AUDIT-C Answer Date Recorded Q1: How often do you have a drink containing alcohol? Never 08/06/2023 Q2: How many drinks containi ng alcohol do you have on a typical day when you are drinking? Patient does not drink Q3: How often do you have si x or more drinks on one occasion? Never 08/06/2023 PHQ-2 Answer Date Recorded PHQ-2 Total Score (If total score is 3 or more points, staff should administer the PHQ-9) 0 06/24/2021 Personal Safety Answer Date Recorded Have you ever been in or are you currently in a harmful physical or emotional relationship or is someone making you feel afraid or unsafe? Denies 08/06/2023 Sex and Gender Information Value Date Recorded Sex Assigned at Not on file Legal Sex Male 3:37 AM OUTSIDE [employer] Gender Identity Male 10/28/2019 9:27 AM CDT Sexual Orientation Straight 10/28/2019 9: 27 AM CDT Obstetrics History Last Filed Vital Signs Vital Sign Reading Time Taken Comments Blood Pressure 145/78 10/20/2024 1:35 PM CDT Pulse 117 10/20/2024 1:35 PM CDT Temperature 36.7 C (98 F) 10/20/2024 1:35 PM CDT Respiratory Rate 16 10/20/2024 1:35 PM CDT Oxygen Saturation 99% 10/20/2024 1:35 PM CDT Inhaled Oxygen Concentration - - Weight 113.9 kg (251 lb) 10/20/2024 1:35 PM CDT Height 182.9 cm (6') 10/20/2024 1:35 PM CDT Body Mass Index 34.04 10/20/2024 1:35 PM CDT Plan of Treatment Upcoming Encounters Date Type Department Care Team (Late st Contact Info) Description 02/22/2025 Hospital Encounter [facility] [address] [place] [address] [place] [id number] [place] [address] Scheduled Procedures Name Priority Associated Diagnoses Date/Ti me ARTHROSCOPY SHOULDER ROTATOR CUFF REPAIR Traumatic complete tear of left rotator cuff, subsequent encounter TENOTOMY BICEPS Traumatic complete tear of left rotator cuff, subsequent encounter ARTHROSCOPY SHOULDER BICEPS TENODESIS Traumatic complete tear of left rotator cuff, subsequent encounter Health Maintenance Due Date Last Done Comments Hepatitis C Screening 1975 Hepatitis B Screening 12/17/1995 Regular Well Visit/Exam 18-64 12/17/1995 DTaP/Tdap/Td Vaccine (2 - Td or Tdap) 08/13/2020 08/13/2010 Depression Screening 06/24/2022 06/24/2021, 08/27/2020, 08/25/2019 Covid-19 Vaccine ( - season) 2024 06/08/2021, 10/09/2020, 09/11/2020 Influenza Vaccine (Season Ended) 2025 06/08/2021, 03/13/2020, 04/12/2019, Additional history exists Colon Cancer Screening-Colonoscopy 08/06/2033 08/06/2023 HPV Vaccines Aged Out No longer eligi ble based on patient's age to complete this topic Pneumococcal vaccine <65 Aged Out No longer eligible based on patient's age to complete this topic Procedures Procedure Name Priority Date/Time Associated Diagnosis Comments MSK MR OUTSIDE REFERENCE Routine 10/20/2024 12:37 PM CDT XR SHOULDER LEFT 2 OR MORE VIEWS Schedule Routine, Read Routine (OP Routine) 10/20/2024 11:18 AM CDT Left shoulder pain, unspecified chronicity COLONOSCOPY 08/06/2023 7:59 AM [employer] from Last 3 Months or Most Recently Relevant to Health Maintenance Results * MSK MR Outside Reference (10/20/2024 12:37 PM CDT) Impressions [facility] - 10/20/2024 12:37 PM CDT These images are for Reference purposes only and have not been reviewed by [facility] Radiology. There will be no report generated by a [facility] Radiologist. Narrative RAD_PACS_[facility] - 10/20/2024 12:37 PM CDT EXAMINATION: Images For Reference Purposes Only us Russell Gamino IV, MD IMG MRI PROCEDURES Fi nal Result RAD_PACS[facility] * XR Shoulder Left 2 or More Views (10/20/2024 11:18 AM CDT) Anatomical Region Laterality Modality Upper Extremities, Shoulder Left Comp uted Radiography 10/20/2024 12:0 1 PM CDT Impressions 10/21/2024 6:57 AM CDT Normal left shoulder joint spaces, with small subacromial spur and rotator cuff enthesopathy. Dictated by: Galindo Yeh MD The radiology attending physician has personally reviewed this study, and had reviewed and/or edited this written report and agrees with it. Electronically signed by: Shivam Ordaz M.D. Narrative 10/21/2024 6:57 AM CDT EXAMINATION: XR SHOULDER LEFT 2 OR MORE VIEWS HISTORY: Left shoulder pain FINDINGS: 4 view examination of the left shoulder is compared to 02/28/2019. Normal alignment. No acute fracture. The joint spaces are normal. A small subacromial spur is present. There is mild enthesopathic change at the supraspinatus insertion. Procedure Note Shivam Lee MD - 10/21/2024 EXAMINATION: XR SHOULDER LEFT 2 OR MORE VIEWS HISTORY: Left shoulder pain FINDINGS: 4 view examination of the left shoulder is compared to 02/28/2019. Normal alignment. No acute fracture. The joint spaces are normal. A small subacromial spur is present. There is mild enthesopathic change at the supraspinatus insertion. IMPRESSION: Normal left shoulder joint spaces, with small subacromial spur and rotator cuff enthesopathy. Dictated by: Galindo Yeh MD The radiology attending physician has personally reviewed this study, and had reviewed and/or edited this written report and agrees with it. Electronically signed by: Shivam Ordaz M.D. us Russell Gamino IV, MD IMG XR PROCEDURES Fin al Result * COLONOSCOPY (08/06/2023 7:59 AM [employer]) Anatomical Region Laterality Modality Other Narrative Procedure Note Alvin James Jr., - 08/06/2023 7:59 AM CST ENDOSCOPY LAB Patient Name: Adonay Carrillo Procedure Date: 08/06/2023 7:59 AM Date of : 1975 Admit Type: Outpatient Age: 47 Gender: Male Attending MD: Alvin James Jr, M.D. Room: [facility] ENDOSCOPY ROOM 05 Note Status: Finalized Procedure: Colonoscopy Indications: Screening for colorectal malignant neoplasm Providers: Alvin James Jr, M.D. Referring MD: Medicines: Propofol per Anesthesia Complications: No immediate complications. Estimated Blood Loss: Estimated blood loss: none. Procedure: Pre-Anesthesia Assessment: - Prior to the procedure, a History and Physicalwas performed, and patient medications and allergieswere reviewed. The patient's tolerance of previous anesthesia was also reviewed. The risks andbenefits of the procedure and the sedation options and risks were discussed with the patient. All questions were answered, and informed consent was obtained. Prior Anticoagulants: The patient has taken noanticoagulant or antiplatelet agents. ASA Grade Assessment: II -A patient with mild systemic disease. After reviewing the risks and benefits, the patient was deemed in satisfactory condition to undergo the procedure. The benefits, risks and alternatives of theprocedure and sedation were discussed and informed consentwas obtained. All questions were answered. Please referto the signed informed consent document in the medical record. The scope was passed under direct vision.The [id number] was introduced through the anusand advanced to the cecum, identified by appendiceal orifice and ileocecal valve. The colonoscopy was performed without difficulty. The patient tolerated the procedure well. The quality of the bowel preparation was adequate. The terminal ileum, ileocecal valve, appendiceal orifice, and rectumwere photographed. Bowel prep was administered using a split dose. Findings: The perianal exam findings include perianal fistula with seton inplace, no abscess or fluctuance. Six sessile polyps were found in the sigmoid colon, mid descending colon, hepatic flexure and mid ascending colon. The polyps were 2 to5 mm in size. These polyps were removed with a jumbo cold forceps. Resection and retrieval were complete. Verification of patient identification for the specimen was done by the physician, nurse and renal technician using the patient's name, date and medical record number. Estimated blood loss was minimal. Many small and large-mouthed diverticula were found in the sigmoidcolon. A fistula was found at the anus. The exam was otherwise without abnormality on direct and retroflexion views. Impression: - Perianal fistula with seton in place, no abscessor fluctuance found on perianal exam. - Six 2 to 5 mm polyps in the sigmoid colon, in the mid descending colon, at the hepatic flexure and in the mid ascending colon, removed with a jumbo cold forceps. Resected and retrieved. - Diverticulosis in the sigmoid colon. - Colonic fistula. - The examination was otherwise normal on directand retroflexion views. Recommendation: - Discharge patient to home. - Resume previous diet. - Continue present medications. - Await pathology results. - Repeat colonoscopy in 3 years for surveillance of multiple polyps. - Return to my office at appointment to bescheduled. Electronically Signed By Alvin James Jr, M.D. Alvin James Jr, M.D. 08/06/2023 8:56:26 AM Number of Addenda: 0 Note Initiated On: 08/06/2023 7:59 AM Alvin James Jr., MD ENDOSCOPY PROCEDURES Final Result from Last 3 Months or Most Recently Relevant to Health Maintenance [place] [employer] [place] [employer] [place] Advance Directives For more information, please contact: [phone] * Full Code (Latest Code Status on File) Date Activated Date Inactivated Comments 08/06/2023 7:33 AM 08/06/2023 2:01 PM Care Teams Study Manager Relationship Specialty Start Date End Date Luis Enrique Marin DO [facility] [address] [address] PCP - General Internal Medicine 10/12/24 Kenji Smith MD [address] [facility] [id number] [place] [address] Consulting Physician Colon and Rectal Surgery 06/19/22 Guera Yoon MD [address] [facility] [address] [place] [address] Consulting Physician Gastroenterology 06/29/22
--- OUTSIDE RECORDS SUMMARY | 2024-11-07 09:07 | XMS_ITS | Clinical Summary ---
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
--- OUTSIDE RECORDS SUMMARY | 2024-11-07 09:07 | XMS_ITS | Clinical Summary ---
Author Organization [facility] Address [address] [place] [address] Care Team Providers Care Tax Analyst Name Role Phone Unavailable Primary Care Provider Unavailabl e Social History Tobacco Use Types Packs/Day Years Used Date Smoking Tobacco: Never Assessed Sex and Gender Information Value Date Recorded Sex Assigned at Not on file Legal Sex Male 7:42 PM CDT Gender Identity Not on file Sexual Orientation Not on file Plan of Treatment Health Maintenance Due Date Last Done Comments Colorectal Cancer Screening Colonoscopy (10 Years) 1977 Annual Physical 1980 Hepatitis C 12/17/1995 DTaP, Tdap and Td Vaccines ( 1 - Tdap) 1996 Hepatitis B Vaccines (1 of 3 - 19+ 3-dose series) 1996 COVID-19 Vaccine ( - 2023-2 5 season) 2024 Meningococcal B Vaccine Aged Out No l onger eligible based on patient's age to complete this topic Meningococcal Vaccine Aged Out No shiv fidencio eligible based on patient's age to complete this topic Pneumococcal Vaccine: Pediat rics (0 to 5 Years) and At-Risk Patients (6 to 49 Years) Aged Out No longer eligible b ased on patient's age to complete this topic RSV Immunizations Under 20 Months Aged Out No longer eligible based on patient's age to complete this topic
--- OUTSIDE RECORDS SUMMARY | 2024-11-07 09:07 | XMS_ITS | Encounter Summary ---
Author Organization [facility] Care Team Providers Care Ob Gyn Name Role Phone Malik Smallwood Primary Care Provider [phone] Kenji Smith MD Unavailable [phone] Guera Yoon MD Unavailable [phone] Luz Marina Marquez MD Primary Care Provider [phone] Luis Enrique Marin DO Primary Care Provider [phone] Encounter Details Date Type Department Care Team (Latest Contact Info) Description 01/08/2018 Orders Only [facility] CLINCON[facility] ProviderTai MD [address] [place] [address] Social History Tobacco Use Types Packs/Day Years Used Date Smoking Tobacco: Never Alcohol Use Standard Drinks/Week Comments No 0 (1 standard drink = 0.6 oz pur e alcohol) Sex and Gender Information Value Date Recorded Sex Assigned at Not on file 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 Gender Identity Male 10/28/2019 9:27 AM CDT Sexual Orientation Straight 10/28/2019 9: 27 AM CDT documented as of this encounter Plan of Treatment Upcoming Encounters Date Type Department Care Team (Late st Contact Info) Description 02/22/2025 Hospital Encounter [facility] [address] [facility] [address] [place] [address] [place] [address] Scheduled Procedures Name Priority Associated Diagnoses Date/Ti me ARTHROSCOPY SHOULDER ROTATOR CUFF REPAIR Traumatic complete tear of left rotator cuff, subsequent encounter TENOTOMY BICEPS Traumatic complete tear of left rotator cuff, subsequent encounter ARTHROSCOPY SHOULDER BICEPS TENODESIS Traumatic complete tear of left rotator cuff, subsequent encounter documented as of this encounter Procedures Procedure Name Priority Date/Time Associated Diagnosis Comments SCAN - PATHOLOGY 01/08/2018 12:0 0 AM CDT documented in this encounter Results * SCAN - PATHOLOGY (01/08/2018 12:00 AM CDT) Narrative 01/08/2018 12:00 AM CDT Ordered by an unspecified provider. us Historical Provider Final Res ult documented in this encounter Visit Diagnoses Not on filedocumented in this encounter Care Teams Ob Gyn Relationship Specialty Start Date End Date Malik Smallwood PA PCP - General Family Medicine 02/28/19 06/21/23 Luz Marina Marquez MD [address] [facility] [address] [place] [address] PCP - General Family Medicine 06/22/23 10/11/24 Luis Enrique Marin DO [address] [place] [address] PCP - General Internal Medicine 10/12/24 Kenji Smith MD [phone] [place] [address] Consulting Physician Colon and Rectal Surgery 06/19/22 Guera Yoon MD [address] [facility] [place] [address] Consulting Physician Gastroenterology 06/29/22 documented as of this encounter
--- OUTSIDE RECORDS SUMMARY | 2024-11-07 09:07 | XMS_ITS | Encounter Summary ---
Author Organization [facility] Address [address] [facility] [place] [address] Care Team Providers Care Calibration Engineer Name Role Phone Yvette Moya MD Primary Care Provider [phone] Encounter Details Date Type Department Care Team (Late st Contact Info) Description 01/08/2018 Lab Requisition [facility] [address] [facility] [place] [id number] Sully Bryant MD [facility] [place] [address] Social History Tobacco Use Types Packs/Day Years Used Date Smoking Tobacco: Never Alcohol Use Standard Drinks/Week Comments No 0 (1 standard drink = 0.6 oz pur e alcohol) Sex and Gender Information Value Date Recorded Sex Assigned at Not on file 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 Gender Identity Not on file Sexual Orientation Not on file documented as of this encounter Plan of Treatment Not on file documented as of this encounter Procedures Procedure Name Priority Date/Time Associated Diagnosis Comments DERMATOPATHOLOGY Routine 01/08/2018 12:0 0 AM CDT documented in this encounter Results * DERMATOPATHOLOGY (01/08/2018 12:00 AM CDT) Case Report Dermatopathology Report Case: [id number] Authorizing Provider: Sully Bryant MD Collected: 01/08/2018 12:00 AM Pathologist: Brigitte Verde MD Received: 01/08/2018 01:13 PM Specimen: Skin, right arm 8 1:12 PM CDT DERMATOPATHOLOGY LABORATORY Final Diagnosis Specimen A. 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 1:12 PM CDT DERMATOPATHOLOGY LABORATORY Gross Description Specimen A: Received is one formalin filled container labeled with the patient's name and designated right arm. The specimen consists of a shave biopsy measuring [id number]. Jar 0. 1:12 PM CDT DERMATOPATHOLOGY LABORATORY Microscopic Description Specimen A. SKIN, right arm: There is hyperkeratosis alternating with parakeratosis. There is epidermal hyperplasia with disorderly maturation of keratinocytes with nuclear pleomorphism confined to the lower half of the epidermis. The adjacent skin shows digitated epidermal hyperplasia, hypergranulosis, vacuolated granular layer cells, and compact hyperorthokeratosis . 1:12 PM CDT DERMATOPATHOLOGY LABORATORY Disclaimer An external and internal positive and negative controls are appropriate for the histochemical, immunohistochemical and immunofluorescence stain(s) in this case (if any), except where stated explicitly. The performance characteristics of the stain(s) cited in this report were developed and its performance characteristic determined by the Dermatopathology Laboratory at [facility]. These tests need not be, and therefore are not, approved by the [place] Food and Drug Administration. The tests are used for clinical purposes. Billing Codes Specimen Charges Stain Charges 89560 1 1:12 PM CDT DERMATOPATHOLOGY LABORATORY Embedded Images 1:12 PM CDT DERMATOPATHOLOGY LABORATORY Pathology/Cytolog y TISSUE SPECIMEN FROM SKIN / Unknown 01/08/2018 01/08/2018 1:13 PM CDT Sully Bryant MD LAB - PATHOLOGY/CYTOLOGY ORDE LIAT Final Result DERMATOPATHOLOGY LABORATORY [facility] - Department of Dermatology [address] [place] [address], 5th Floor Lab [address] [phone] documented in this encounter Visit Diagnoses Not on filedocumented in this encounter Care Teams Calibration Engineer Relationship Specialty Start Date End Date Yvette Moya MD [address] [place] [phone] PCP - General 10/02/09 documented as of this encounter
--- OUTSIDE RECORDS SUMMARY | 2024-11-07 09:07 | XMS_ITS | Clinical Summary ---
Author Organization [facility] Address [address] [place] [address] Care Team Providers Care Parent Coach Name Role Phone Yvette Moya MD Primary Care Provider [phone] Source Comments [facility],non-owned Affiliates and Associated Physician Practices is amultiple site organization consisting of ambulatory clinics and hospital sitesin [place], [place], [place] and [place]. This disclosure is being madepursuant to the Care Everywhere program and may not contain all information available regarding this patient. Last updated 18.[facility] [place] Allergies Active Allergy Reactions Criticality Noted Date Comments Iodine Other Low 01/26/2012 Unspecified reaction, Iodine dye Penicillins Other Low 01/26/2012 unspecified Active Problems Problem Noted Date Diagnosed Date Anxiety disorder 01/26/2012 Resolved Problems Problem Noted Date Diagnosed Date Resolved Date Diarrhea 01/26/2012 11/09/2017 Family History Medical History Relation Name Comments CAD (Coronary Artery Disease) Father Status: Crohn's Disease Maternal Uncle Thyroid Disease Mother Status: Aliv e Relation Name Status Comments Father Maternal Uncle Mother Social History Tobacco Use Types Packs/Day Years Used Date Smoking Tobacco: Never Alcohol Use Standard Drinks/Week Comments No 0 (1 standard drink = 0.6 oz pur e alcohol) Sex and Gender Information Value Date Recorded Sex Assigned at Not on file 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 Gender Identity Not on file Sexual Orientation Not on file Plan of Treatment Health Maintenance Due Date Last Done Comments COLOGUARD (AGES 45-75) - COL ON CA SCREENING 1977 COLON MONITORING 1977 COLONOSCOPY - COLON CA SCREENING 1977 CT COLONOGRAPHY - COLON CA SCREENING 1977 Colorectal Cancer Screening 1977 FIT - COLON CA SCREENING 1977 FLEX SIG - COLON CA SCREENING 1977 LIPID TESTING 1977 HIV SCREENING 1992 HEPATITIS C SCREENING 12/12/1995 DTAP/TDAP/TD VACCINES (1 - Tdap) 1996 HEPATITIS B VACCINE (1 of 3 - 19+ 3-dose series) 1996 COVID-19 VACCINE (1 - 2023-2 5 season) 2024 DEPRESSION SCREENING 07/13/2024 INFLUENZA VACCINE (Season Ended) 2025 04/12/2019, 04/21/2018, 04/20/2012 ZOSTER VACCINE (1 of 2) 12/17/2027 HIB VACCINE Aged Out No longer eligi ble based on patient's age to complete this topic HPV VACCINE Aged Out No longer eligi ble based on patient's age to complete this topic MENINGOCOCCAL (Group B) VACCINE SHARED DECISION-MAKING Aged Out No longer eligible based on patient's age to complete this topic MENINGOCOCCAL GROUPS A/C/Y/W VACCINE Aged Out No longer eligible b ased on patient's age to complete this topic PNEUMOCOCCAL VACCINE Aged Out No long er eligible based on patient's age to complete this topic Insurance ANTH Care Teams Parent Coach Relationship Specialty Start Date End Date Yvette Moya MD [address] [facility] [address] [place] [address] PCP - General 10/02/09
--- OUTSIDE RECORDS SUMMARY | 2024-11-07 09:07 | XMS_ITS | Referral Summary ---
Author Organization [facility] Address [address] [place] [address] Care Team Providers Care Winter Intern Name Role Phone Kenji Smith MD Unavailable [phone] Guera Yoon MD Unavailable [phone] Luis Enrique Marin DO Primary Care Provider [phone] Encounters Date Type Department Care Team Description 10/20/2024 12:37 PM CDT - 10/20/2024 11:59 PM CDT Hospital Encounter [facility] [address] [place] [address] Discharge Disposition: Discharge to home or self care 10/20/2024 11:10 AM CDT - 10/20/2024 11:59 PM CDT Hospital Encounter [facility] [address] [place], [place] [phone] Left shoulder pain, unspecified chronicity Discharge Disposition: Discharge to home or self care 10/20/2024 11:20 AM CDT Office Visit [facility] Orthopaedic Surgery [address] [facility] [address] [place] [phone] Russell Gamino IV, MD Traumatic complete tear of left rotator cuff, initial encounter (Primary Dx); Acute pain of left shoulder; Biceps tendinitis of left upper extremity 10/20/2024 1:45 PM CDT Office Visit [facility] Surgery [facility] [address] [place] [address] Alvin James Jr., MD [id number] [K60.30] (Primary Dx) from Last 3 Months Allergies Active Allergy Reactions Criticality Noted Date [...] (06/20/2022): Added automatically from request for surgery [id number] Lower abdominal pain 02/10/2022 Chronic right-sided thoracic back pain 2 Rib pain on right side 06/21/2021 Assessment & Plan (06/21/2021 3:15 PM ELECTRONIC SALES AND SERVICE TECHNICIAN): Acute, worsening-advised to get x-ray of right [...] problems Assessment & Plan (08/27/2020 12:05 PM ELECTRONIC SALES AND SERVICE TECHNICIAN): Patient is to continue present medications, work [...] routine. Assessment & Plan (08/27/2020 12:05 PM ELECTRONIC SALES AND SERVICE TECHNICIAN): Patient is to continue present medications, work [...] follow Assessment & Plan (07/25/2019 11:37 AM ELECTRONIC SALES AND SERVICE TECHNICIAN): Did not have time to fully discuss today given multiple other issues Advised patient make appointment to follow up with PCP Tendinitis of left rotator cuff 04/04/2019 Chronic left shoulder pain 02/28/2019 Injury of left shoulder 02/28/2019 Glenoid labrum tear 10/27/2016 Rotator cuff syndrome 09/30/2016 Subacromial bursitis 09/30/2016 Seasonal allergies 03/27/2016 Overview (08/25/2019): zyrtec and flonase Assessment & Plan (06/21/2021 3:16 PM ELECTRONIC SALES AND SERVICE TECHNICIAN): Chronic, stable, controlled with oral medications and [...] depression Assessment & Plan (08/27/2020 12:06 PM ELECTRONIC SALES AND SERVICE TECHNICIAN): Images from the original note were not [...] understanding Assessment & Plan (08/27/2020 12:05 PM ELECTRONIC SALES AND SERVICE TECHNICIAN): Images from the original note were not [...] loss Assessment & Plan (07/25/2019 11:33 AM ELECTRONIC SALES AND SERVICE TECHNICIAN): BMI Follow-up includes: nutrition counseling and exercise counseling. Chest wall pain 12/28/2014 Assessment & Plan (06/24/2021 4:37 PM ELECTRONIC SALES AND SERVICE TECHNICIAN): Improving,with medications, option for PT, suspect over use and myositis but can not rule out occult fracture. Assessment & Plan (06/10/2021 2:56 PM ELECTRONIC SALES AND SERVICE TECHNICIAN): cjonsistant with strain, alternate heat and ice, medications as ordered Arthralgia of hip 02/08/2010 Resolved Problems Problem Noted Date Diagnosed Date Resolved Date Mild episode of recurrent ma huber depressive disorder 08/27/2020 08/27/2020 Assessment & Plan (02/10/2022 3:03 PM CDT): This is well controlled with no HI SI continue current meds follow-up routine Immunizations Immunization Administration Dates Next Due Influenza, Quadrivalent, Spl it, Preservative Free, Intramuscular 04/21/2018 Influenza, Trivalent, IM (MDV) 04/20/2012 Influenza, Unspecified 06/08/2021,2019,04/12/2019,04/21 Moderna SARS-CoV-2 Monovalen t Vaccination (12+ YRS) 06/08/2021,10/09/2020,09/11/2020 Tdap 08/13/2010 Social History Tobacco Use Types Packs/Day Years [...] on file Legal Sex Male 3:37 AM ELECTRONIC SALES AND SERVICE TECHNICIAN Gender Identity Male 10/28/2019 9:27 AM CDT Sexual Orientation Straight 10/28/2019 9: 27 AM CDT Last Filed Vital Signs Vital Sign Reading [...] Contact Info) Description 02/22/2025 Hospital Encounter [facility] [address] [place] [address] [place] [address] [place] [address] Scheduled Procedures Name Priority Associated Diagnoses Date/Ti me ARTHROSCOPY SHOULDER ROTATOR CUFF REPAIR Traumatic complete tear of left rotator cuff, subsequent encounter TENOTOMY BICEPS Traumatic complete tear of left rotator cuff, subsequent encounter ARTHROSCOPY SHOULDER BICEPS TENODESIS Traumatic complete tear of left rotator cuff, subsequent encounter Procedures Procedure Name Priority Date/Time Associated Diagnosis Comments MSK MR OUTSIDE REFERENCE Routine 10/20/2024 12:37 PM CDT XR SHOULDER LEFT 2 OR MORE VIEWS Schedule Routine, Read Routine (OP Routine) 10/20/2024 11:18 AM CDT Left shoulder pain, unspecified chronicity COLONOSCOPY 08/06/2023 7:59 AM ELECTRONIC SALES AND SERVICE TECHNICIAN from Last 3 Months or Most Recently Relevant to Health Maintenance Results * MSK MR Outside Reference (10/20/2024 12:37 PM CDT) Impressions RAD_PACS[facility] - 10/20/2024 12:37 PM CDT These images are for Reference purposes only and have not been reviewed by [facility] Radiology. There will be no report generated by a [facility] Radiologist. Narrative RAD_PACS[facility] - 10/20/2024 12:37 PM CDT EXAMINATION: Images [...] al Result * COLONOSCOPY (08/06/2023 7:59 AM ELECTRONIC SALES AND SERVICE TECHNICIAN) Anatomical Region Laterality Modality Other Narrative Procedure Note Alvin James Jr., - 08/06/2023 7:59 AM CST ENDOSCOPY LAB Patient Name: Adonay Carrillo Procedure Date: 08/06/2023 7:59 AM Date of : 1975 Admit Type: Outpatient Age: 47 Gender: Male Attending MD: Alvin James Jr, M.D. Room: [facility] ENDOSCOPY ROOM 05 Note Status: Finalized Procedure: [...] The scope was passed under direct vision.The [id number] was introduced through the anusand advanced to [...] was done by the physician, nurse and epitaxial reactor technician using the patient's name, date and [...] Return to my office at appointment to [facility]. Electronically Signed By Alvin James Jr, M.D. Alvin James Jr, M.D. 08/06/2023 8:56:26 AM Number of Addenda: 0 Note Initiated On: 08/06/2023 7:59 AM Alvin James Jr., MD ENDOSCOPY PROCEDURES Final Result from Last 3 Months or Most Recently Relevant to Health Maintenance Insurance [address] [place] [address] [employer] [place] [address] [place] [address] [employer] [place] [employer] [place] Advance Directives For more information, please contact: [phone] * Full Code (Latest Code Status on File) Date Activated Date Inactivated Comments 08/06/2023 7:33 AM 08/06/2023 2:01 PM Care Teams Winter Intern Relationship Specialty Start Date End Date Luis Enrique Marin DO [facility] [facility] [place] [address] PCP - General Internal Medicine 10/12/24 Kenji Smith MD [phone] [place] [address] Consulting Physician Colon and Rectal Surgery 06/19/22 Guera Yoon MD [address] [facility] [address] [place] [address] Consulting Physician Gastroenterology 06/29/22
[2024-11-07 12:10] LABS: Creatinine Urine 225.3 mg/dL
[2024-11-07 12:13] LABS: MALB Creatinine Ratio 5.4 mg/g (0-30); Microalbumin Urine Random 12.1 mg/L (0-16.7)
== END 2024-11-07 08:47 | disposition home or self-care (01) ==
LOC: ANHGOSHLAB 08:47
PROVIDERS: PCP Nurse Practitioner; Visit Provider Internal Medicine
DX: E11.9 Type 2 diabetes mellitus without complications (principal)
CPT/HCPCS: 82043

== ENCOUNTER 2024-12-14 17:39 | Emergency (ER) | payer BC, SELFPAY ==
[2024-12-14 17:50] VITALS: BP 128/85; PULSE 90; RESP 16; TEMP 36.9; O2SAT 96
--- NOTE | 2024-12-14 18:16 | ED_ITS ---
HPI - Skin/Abscess/Foreign Bdy General Chief complaint: Skin/Abscess/Foreign Body Stated complaint: INFECTED AREA ON ABDOMEN Time Seen by Provider: 12/14/24 18:05 Source: patient and RN notes reviewed Mode of arrival: ambulatory Limitations: no limitations History of Present Illness HPI narrative: 48-year-old male presents Express Care complaining of possible skin infection is belly button. Patient said over the last 4-5 days he has noticed worsening redness, swelling, pain, heat coming from his umbilical region of his abdomen. Patient also reports having purulent discharge coming out of his belly button. Patient denies any umbilical hernia history. Patient says he has a history of morbid obesity and recently has lost over 40 lb on Ozempic. Diabetes that was told he is prediabetic prior to starting Ozempic treatment. Patient has a history of peritonsillar abscesses denies any history of cellulitis. Patient denies any nausea, vomiting, diarrhea, abdominal pain, fevers, body aches, chills or any other symptoms. Patient denies any recent hospitalization or any history of MRSA. Related Data Home Medications ?Medication ?Instructions ?Recorded ?Confirmed ?Last Taken ?Type cetirizine 10 mg tablet (Zyrtec) 10 mg PO DAILY 05/13/20 11/07/24 Unknown History loratadine 10 mg tablet (Claritin) 10 mg PO DAILY 05/13/20 11/07/24 Unknown History cholecalciferol (vitamin D3) 125 250 mcg PO DAILY 01/19/23 11/07/24 Unknown History mcg (5,000 unit) capsule testosterone cypionate 100 mg/mL 150 mg IM WEEKLY 05/12/23 11/07/24 Unknown History intramuscular oil magnesium 250 mg tablet 250 mg PO DAILY 11/10/23 11/07/24 Unknown History tadalafil 5 mg tablet 5 mg PO DAILY 11/10/23 11/07/24 Unknown History vitamin [id number] B1 1,000 ml IM 11/10/23 11/07/24 Unknown History mcg-100 mg/mL injection solution prasterone (DHEA) 25 mg capsule 50 mg PO DAILY 05/10/24 11/07/24 Unknown History (DHEA) esomeprazole magnesium 20 mg 20 mg PO DAILY 11/07/24 11/07/24 Unknown History capsule,delayed release (Nexium) Allergies Allergy/AdvReac Type Severity Reaction Status Date / Time Penicillins Allergy Severe Rash Verified 12/14/24 17:43 Review of Systems Review of Systems: CONSTITUTIONAL: Denies fever, chills, or sweats. EYES: Denies visual changes, redness, or discharge. ENT: Denies rhinorrhea, congestion, sore throat, or otalgia. CARDIOVASCULAR: Denies chest pain, palpitations, or edema. RESPIRATORY: Denies cough or dyspnea. GASTROINTESTINAL: Denies abdominal pain, nausea, vomiting, or diarrhea. GENITOURINARY: Denies dysuria or hematuria. SKIN: Denies rash or itching. Positive for wound. MUSCULOSKELETAL: Denies back pain, joint pain, or myalgia. NEUROLOGIC: Denies headache, numbness, or weakness. PSYCHIATRIC: Denies anxiety or depression. All other systems reviewed are negative, except as documented in HPI. [facility] Past Medical History Medical History Colon polyps DM w/o complication type II Male hypogonadism Shoulder pain, bilateral Irritable bowel syndrome Aftercare following right hip joint replacement surgery History of arthroplasty of right elbow Irritable bowel syndrome with mixed bowel habits Anxiety Allergies Abscess, perianal High cholesterol Hypercholesterolemia Surgical History Surgical History History of anal fistulotomy History of arthroplasty of right shoulder H/O repair of rotator cuff Hx of tonsillectomy History of cholecystectomy Family History Family History Sibling Cancer Father Depression Anxiety Heart problem Other High cholesterol Hypertension Social History Social History Smoking status: Never smoker Alcohol intake: current Alcohol use details: Rarely drinks Substance use: never Substance use type: does not use Do You Feel Safe in your Home?: Yes Lack of Transportation: No Lack of Food: Never True Current Housing: I Have Housing Concerned About Future Housing: No Difficulty Paying Gas/Electric Bills: No Difficulty Paying for Meds: No Currently Unemployed: No Education: Bachelor's Degree Difficulty w/ Childcare or Family Care: No Living arrangements: with family Occupation/Education: occupation Gender identity (if verbalized by the patient): Male Agree to blood products: Yes Comments At the time of my signature, I reviewed and agree with the nursing past medical, surgical, social, and family history. There is no relevant family history pertinent to the patient complaint. Exam Narrative: GENERAL: This is a well-nourished, well-developed adult, in no apparent distress. They are non ill-appearing, nontoxic appearing. HEAD: normocephalic, atraumatic. EYES: Sclera clear/white. Conjunctiva normal. Vision is grossly intact. Extraocular movements intact EARS: External ears normal, Hearing grossly intact. NOSE: External nose normal THROAT: Mucous membranes moist, NECK: Neck supple, CARDIOVASCULAR: Regular rate and rhythm RESPIRATORY: Respiratory rate normal, respiratory effort nonlabored, no respiratory distress GASTROINTESTINAL: Abdomen soft, non-tender, nondistended. No hepato- splenomegaly, or palpable masses. No guarding. No umbilical hernia palpated. SKIN: Area of erythema surrounding the patient's umbilical region. Purulent exudate present and patient's umbilicus. Area of erythema is warm to touch with mild tenderness to palpation. No induration or area of fluctuance. Area of erythema measuring approximately 1 cm above the umbilicus and 3 cm below the umbilicus in an a circular distribution. Area of erythema border marked with a skin marker. NEURO: awake, alert, and oriented to person, place and time. There were no obvious focal neurologic abnormalities. EXTREMITIES: No joint tenderness, effusion, or edema noted. Course Course Emergency Course: Portions of this record may have been created with voice recognition software Level of Care: Express Care Visit Vital Signs Vital signs: Vital Signs Temperature 98.5 F 12/14/24 17:50 Pulse Rate 90 12/14/24 17:50 Respiratory Rate 16 12/14/24 17:50 Blood Pressure 128/85 12/14/24 17:50 Pulse Oximetry 96 12/14/24 17:50 Temperature 98.5 F 12/14/24 17:50 Pulse Rate 90 12/14/24 17:50 Respiratory Rate 16 12/14/24 17:50 Blood Pressure 128/85 12/14/24 17:50 Pulse Oximetry 96 12/14/24 17:50 Reviewed MDM - Skin/Abscess/Foreign Bdy MDM Narrative Medical decision making narrative: No evidence of umbilical hernia. Likely patient has abdominal wall cellulitis. Wound culture obtained from the purulent drainage coming from the umbilicus. Wound culture is pending. No evidence of abscess formation under abdominal wall. Patient has a allergy to penicillins, unsure if he has ever had cephalosporins before. Will treat with Bactrim. Discussed physical exam findings. Advised supportive measures and signs/symptoms to go to the ER. Pt is appropriate for outpt treatment and f/u. Differential Diagnosis Differential diagnosis: Likely abscess of skin or subcutaneous tissue, cellulitis and other (Umbilical hernia) Critical Care Time Critical Care Time Critical Care Time: No Discharge Plan Discharge Clinical Impression: Cellulitis of umbilicus Patient Disposition: Home Condition: Stable Instructions: Antibiotic Form, Cellulitis (ED) Additional Instructions: Clean with soap and water only; Avoid using alcohol and peroxide. A wound culture was sent off you will be notified if there is a need to change antibiotic treatment. Tylenol or ibuprofen as needed for pain or fevers. Take antibiotic until it's gone. Please schedule a follow up visit with your personal physician for further evaluation and treatment within 3-5days If your symptoms do not start to improve on antibiotics in the next couple days, you developed worsening redness, swelling, pain, fevers, or any other concerns please go to the ER immediately. Patient Language: Yi Prescriptions: New sulfamethoxazole-trimethoprim [Bactrim DS] 800-160 mg tablet 1 tablet PO Q12H 7 Days Qty: 14 0RF No Action cetirizine [Zyrtec] 10 mg Tablet 10 mg PO DAILY loratadine [Claritin] 10 mg Tablet 10 mg PO DAILY cholecalciferol (vitamin D3) 125 mcg (5,000 unit) capsule 250 mcg PO DAILY testosterone cypionate 100 mg/mL oil 150 mg IM WEEKLY Rx Instructions: as a single dose vitamin [id number] B1 1,000-100 mg/mL solution IM magnesium 250 mg tablet 250 mg PO DAILY tadalafil 5 mg tablet 5 mg PO DAILY prasterone (DHEA) [DHEA] 25 mg capsule 50 mg PO DAILY esomeprazole magnesium [Nexium] 20 mg capsule,delayed release(DR/EC) 20 mg PO DAILY simvastatin 10 mg tablet 10 mg PO DAILY Qty: 90 3RF bupropion HCl 150 mg tablet extended release 24 hr 150 mg PO QAM Qty: 90 1RF Ozempic 2 mg/dose (8 mg/3 mL) pen injector See Rx Instructions .ROUTE .COMPLEX Qty: 3 4RF Dose Instruction: 2 MG (0.75 ML) SUBCUTANEOUSLY WEEKLY WEEK 13 AND ON Rx Instructions: 2 MG (0.75 ML) SUBCUTANEOUSLY WEEKLY WEEK 13 AND ON Follow-up/Referrals: Luis Enrique Marin DO [Primary Care Provider] - Time of Disposition: 18:10
== END 2024-12-14 18:13 | disposition home or self-care (01) ==
PROVIDERS: PCP Internal Medicine
DX: L03.316 Cellulitis of umbilicus (principal); E11.9 Type 2 diabetes mellitus without complications; E78.00 Pure hypercholesterolemia, unspecified; E66.01 Morbid (severe) obesity due to excess calories; Z68.33 Body mass index [BMI] 33.0-33.9, adult
CPT/HCPCS: 87070; 87075; 87205; 99213; G0463